=== PATIENT | female | born 1945 | race Caucasian/White ===

== ENCOUNTER 2020-04-05 14:29 | Inpatient (IN) | payer MEDICARE, OTHER ==
[~2020-04-05] VITALS: Ht 152.4 cm; Wt 60.3 kg
--- NOTE | 2020-04-05 14:45 | NUR ---
LAW PROFESSOR NOTE- PT ARRIVED TO GPS VIA [facility] FROM [facility] FOR 5150 DTS/DEPRESSION. PT WITH INCREASING DEPRESSION OVER LAST YEAR AND CONTINUED + SI. PT STATES, "I DON'T WANT TO BE HERE ANYMORE. I DONT WANT TO LIVE, I THINK ABOUT GOING SOMETIMES." ON FACE TO FACE EVALUATION, PT AMBULATORY, ALERT ORIENTED TO PERSON PLACE. SHE KNOWS THE CURRENT PRESIDENT BUT GUESSED THE DAY INCORRECTLY. SHE IS A BIT SLOW TO RESPOND WITH A BLUNTED AFFECT. HER EYE CONTACT IS FAIR AND SHE'S INTERACTIVE WITH CIRCUMSTANTIAL THOUGHT PROCESSES. PT DOES HAVE +SI. SHE HAS NO PLAN OR MEANS. DENIES HI AH OR VH. HE VS- BP-129/72, HR- 72, RR-20, T- 97.6, SATS 99% RA. ACCU-CHECK BS- 98. PT SKIN INTACT, MRSA SWAB DONE. PT REFUSES PNA VACCINE BUT REQUESTS INFLUENZA VACCINE. PMHX- BLADDER SURGERY TWO DECADES AGO "PROLAPSE" PT STATES, PT ALSO STATES SHE HAS CHEST PAIN AT TIMES BUT NO MEDICAL FINDINGS HAVE BEEN FOUND. DR PAYNE AND DR BATES MADE AWARE OF ADMISSION. ORDER RECEIVED AND COMPLIED WITH. PT RIGHTS PAMPHLET GIVEN. ENCOURAGING SAFETY AND MED COMPLIANCE.
[2020-04-05] MEDS ORDERED: MAGNESIUM HYDROXIDE 30 ML UDC PO PRN (15:00)
[2020-04-05] MEDS ORDERED: MAG HYDROX/AL HYDROX/SIMETH 30 ML UDC PO PRN (15:00)
[2020-04-05] MEDS ORDERED: BLOOD SUGAR DIAGNOSTIC 1 EACH STRIP IN ONE (15:00)
--- NOTE | 2020-04-05 15:22 | NUR ---
RN NOTE: ADMIT ACCUCHECK 98.
[2020-04-05 15:23] VITALS: BP 125/59
[2020-04-05 16:00] VITALS: BP 125/59
[2020-04-05] MEDS ORDERED: INFLUENZA VACCINE 2020-21 0.5 ML DISP.SYRIN IM ONE (16:00)
--- NOTE | 2020-04-05 17:07 | NUR ---
RN NOTE/FLU VACCINE- FLU VACCINE GIVEN AT THIS TIME. TOLERATED WELL.
[2020-04-05 19:49] VITALS: BP 127/74
[2020-04-05 19:55] VITALS: BP 127/74
[2020-04-05] MEDS: LORAZEPAM 0.5 MG TABLET PO PRN (20:03)
--- NOTE | 2020-04-05 20:03 | NUR ---
GPS RN NOTE: ANXIETY PT WAS C/O OF FEELING IRRITABLE, RESTLESS, ANXIOUS, REQUESTED SOMETHING FOR THE ANXIETY. ADMIN PRN ATIVAN 0.5MG @ 2002, WILL REASSESS AND CONTINUE TO MONITOR Q15MIN FOR SAFETY AND BEHAVIOR.
[2020-04-05] MEDS: TEMAZEPAM 7.5 MG CAPSULE PO PRN (21:26)
--- NOTE | 2020-04-05 21:27 | NUR ---
GPS RN NOTE: INSOMNIA PT C.O OF INSOMNIA, THAT SHE IS UNABLE TO SLEEP WITHOUT MEDICATION, REQUESTED SLEEPING PILL, ADMIN RESTORIL 7.5MG PRN @2125, WILL REASSESS AND CONTINUE TO MONITOR Q15MIN FOR SAFETY AND BEHAVIOR.
[2020-04-06] MEDS: LORAZEPAM 0.5 MG TABLET PO PRN (03:12)
--- NOTE | 2020-04-06 03:12 | NUR ---
GPS RN NOTE: ANXIETY PT WOKE UP C/O OF FEELING RESTLESS AND ANXIOUS AGAIN, ASKED IF SHE WAS ABLE TO TAKE THE MEDICATION BEFORE, VSS, ADMIN ATIVAN PRN @ 9972. WILL REASSESS AND CONTINUE TO MONITOR Q15MIN FOR SAFETY AND BEHAVIOR.
[2020-04-06] MEDS ORDERED: GEMF600T5 PO (07:56)
[2020-04-06] MEDS ORDERED: ATOR10TA PO (07:56)
[2020-04-06 08:00] VITALS: BP 124/75
--- NOTE | 2020-04-06 08:17 | NUR ---
UR NOTE: AUTHORIZATION #[id number] OBTAINED FROM ALEJANDRA CARBAJAL MGR AT [facility] [phone]. 3 DAYS APPROVED. RECEIVED FAX BACK AUTH COPY FROM [facility] [employer] OR [facility] WITH PHONE [phone] FAX# [phone]. OTHER NUMBER LISTED FOR UM FOR ALEJANDRA IS [phone]. Addendum: 04/06/20 at 1027 by ERAN GALVAN Cara CarbajalRegulator Mechanic phone number [phone] and fax# [phone].
[2020-04-06 08:56] LABS: CHOLESTEROL 144 mg/dL (<200); HDL CHOLESTEROL 52 mg/dL (40-60); LDL 81 mg/dL (0-99); TRIGLYCERIDES 74 mg/dL (30-150)
[2020-04-06 08:57] LABS: ALBUMIN 3.8 g/dL (3.4-5.0); BILIRUBIN,TOTAL 0.9 mg/dL (0.2-1.0); CALCIUM, SERUM 9.3 mg/dL (8.5-10.1); CREATININE 0.8 mg/dL (0.6-1.3); POTASSIUM 3.4 mmol/L (3.5-5.1); TOTAL PROTEIN, SERUM 7.2 g/dL (6.4-8.2)
--- NOTE | 2020-04-06 09:00 | NUR ---
RN NOTE- PT ALERT ORIENTED TO PERSON PLACE PURPOSE, CONFUSED ON TIME, DENYING HI AH VH, THOUGH ADMITS TO SOME +SI. STATES "I DONT WANT TO BE HERE ANYMORE" MED COMPLIANT, PO INTAKE GOOD TODAY... VISIBLE ON UNIT AT TIMES, INTERACTIVE W OTHERS SELECTIVELY
--- NOTE | 2020-04-06 10:39 | NUR ---
RN NOTE- DR LENTZ AWARE OF K+ 3.4 AND BUN 25. ORDERED PUSH FLUIDS RECHECK LABS IN FEW DAYS
--- NOTE | 2020-04-06 10:40 | NUR ---
FAMILY CONTACT: SW contacted pts Lorena ([phone]) for treatment and discharge planning. Per , pt will return home and states he will be picking pt up once stable for discharge.
[2020-04-06] MEDS ORDERED: POTASSIUM CHLORIDE 20 MEQ TAB.PRT.SR PO SCH (11:00)
--- NOTE | 2020-04-06 12:44 | NUR ---
INITIAL DISCHARGE PLAN: [place] return [place] [address] [id number]. SW will help form a safe and proper discharge in collaboration with .
[2020-04-06] MEDS: SERTRALINE HCL 50 MG TABLET PO SCH (13:05)
[2020-04-06 16:00] VITALS: BP 131/76
[2020-04-06 19:53] VITALS: BP 128/62
[2020-04-06] MEDS: TEMAZEPAM 7.5 MG CAPSULE PO PRN (21:56)
--- NOTE | 2020-04-06 21:57 | NUR ---
GPS RN NOTES: INSOMNIA PT C/O UNABLE TO SLEEP. PT REQUESTED "SLEEPING MEDICATION". OFFERED RESTORIL PRN ORDERED. PT AGREED AND TOLERATED MEDICATION WELL. CONTINUE TO MONITOR
[2020-04-07 03:10] VITALS: BP 120/75
[2020-04-07] MEDS: LORAZEPAM 0.5 MG TABLET PO PRN ×2 (03:15→09:35)
--- NOTE | 2020-04-07 03:16 | NUR ---
GPS RN NOTE: ANXIOUS PT WOKE UP C/O OF FEELING RESTLESS AND ANXIOUS. VITALS CHECKED WNL. ADMIN ATIVAN PRN PO ORDERED. WILL REASSESS AND CONTINUE TO MONITOR Q15MIN FOR SAFETY AND BEHAVIOR.
[2020-04-07 08:00] VITALS: BP 119/74
--- NOTE | 2020-04-07 12:27 | NUR ---
GROUP NOTE: SW encouraged pt to attend group on this day. Pt was laying in bed and refused to attend stating she was cold and was not feeling well. SW assessed for suicidal ideation, pt denies SI and states she would never hurt herself. Pt is withdrawn and isolated and SW discussed the importance of attending group milieu and getting up from bed to help with her depressed mood. Pt stated she will try later on today to get out of bed and walk around.
[2020-04-07] MEDS: SERTRALINE HCL 50 MG TABLET PO SCH (12:45)
--- NOTE | 2020-04-07 15:07 | NUR ---
GPS/RN-NOTES CALLED DR. LENTZ REGARDING PT. MEDICATIONS THAT NEED TO RECONCILE. PER MD SHE WILL RECONCILE IT.
[2020-04-07 16:00] VITALS: BP 125/79
[2020-04-07] MEDS: GEMFIBROZIL 600 MG TABLET PO SCH (17:05)
[2020-04-07 19:54] VITALS: BP 147/80
[2020-04-07] MEDS: ATORVASTATIN 10 MG TABLET PO SCH (21:11)
[2020-04-07] MEDS: TEMAZEPAM 7.5 MG CAPSULE PO PRN (21:12)
--- NOTE | 2020-04-07 21:12 | NUR ---
GPS-RN NOTE: INSOMNIA PATIENT C/O INABILITY TO SLEEP. ADMINISTERED RESTORIL 7.5MG PO ORDERED. WILL CONTINUE TO MONITOR FOR PATIENT'S SAFETY.
[2020-04-08] MEDS: LORAZEPAM 0.5 MG TABLET PO PRN ×2 (06:28→18:18)
--- NOTE | 2020-04-08 06:28 | NUR ---
GPS-RN NOTE: ANXIETY PATIENT C/O FEELING ANXIOUS. PT REQUESTED FOR ATIVAN. PRN ATIVAN 0.5MG PO GIVEN. WILL CONTINUE TO MONITOR FOR PATIENT'S SAFETY.
[2020-04-08 06:53] LABS: BASOPHILS % (AUTO) 0.3 % (0.0-2.0); EOSINOPHILS % (AUTO) 2.3 % (0.0-6.0); HEMATOCRIT 39 % (33-45); HEMOGLOBIN 13.4 g/dL (11.5-14.8); LYMPHOCYTES # (AUTO) 1.1 /CMM (0.8-4.8); MEAN CORPUSCULAR HGB CONC 34 g/dl (31.0-36.0); MEAN CORPUSCULAR VOLUME 97 fL (82-100); MONOCYTES # (AUTO) 0.4 /CMM (0.1-1.30); MONOCYTES % (AUTO) 7.5 % (2.0-12.0); NEUTROPHILS # (AUTO) 3.6 /CMM (1.8-8.9); NEUTROPHILS % (AUTO) 68.9 % (43.0-81.0); PLATELET COUNT (AUTO) 152 /CMM (150-450); RED BLOOD CELL COUNT(AUTO) 4.01 MIL/uL (4.0-5.2); WHITE BLOOD COUNT (AUTO) 5.2 K/uL (4.3-11.0)
[2020-04-08 07:17] LABS: CALCIUM, SERUM 9.1 mg/dL (8.5-10.1); CARBON DIOXIDE 26 mmol/L (21-32); CHLORIDE 103 mmol/L (98-107); CREATININE 0.5 mg/dL (0.6-1.3); GLUCOSE 71 mg/dL (74-106); MAGNESIUM 2.1 mg/dL (1.8-2.4); PHOSPHORUS 3.6 mg/dL (2.5-4.9); POTASSIUM 3.6 mmol/L (3.5-5.1); SODIUM SERUM 139 mmol/L (136-145); UREA NITROGEN, BLOOD 20 mg/dL (7-18)
[2020-04-08] MEDS: GEMFIBROZIL 600 MG TABLET PO SCH (08:21)
[2020-04-08 08:26] VITALS: BP 122/66
--- NOTE | 2020-04-08 10:27 | NUR ---
UR NOTE: AUTHORIZATION #[id number] COLE completed clinical review via voicemail with Cara Hand Deicer [employer] Winder phone number [phone]/fax# [phone] with JOÃO Selenokhod.
--- NOTE | 2020-04-08 11:43 | NUR ---
UR Contact: Cara, pts Security Monitor ([phone]), contacted the SW and stated that she needed a faxed version of the clinical left on her voicemail. COLE faxed a clinical to [phone].
[2020-04-08] MEDS: SERTRALINE HCL 50 MG TABLET PO SCH (12:21)
[2020-04-08 16:06] VITALS: BP 119/71
--- NOTE | 2020-04-08 16:22 | NUR ---
Group Note: SW encouraged the pt to attend group therapy on 04/08/20 on discharge planning. Pt refused to attend and stated that she wanted to remain in her bed. COLE conducted an individual and discussed the pt discharging back to her home once her MD thinks that she is stable. Pt stated that she wants to go home as soon as possible.
[2020-04-08] MEDS: SERTRALINE HCL 25 MG TABLET PO SCH (16:24)
--- NOTE | 2020-04-08 18:20 | NUR ---
GPS/RN-NOTES PATIENT REQUESTING ATIVAN FOR ANXIETY, ATIVAN 0.5MG P.O GIVEN PRN ORDER. WILL ENDORSE TO THE INCOMING NURSE TO CONTINUE MONITORING FOR SAFETY AND BEHAVIOR.AND CONTINUITY OF CARE.
[2020-04-08 20:10] VITALS: BP 110/73
[2020-04-08] MEDS: ATORVASTATIN 10 MG TABLET PO SCH (21:04)
[2020-04-08] MEDS: TEMAZEPAM 7.5 MG CAPSULE PO PRN (21:06)
--- NOTE | 2020-04-08 21:07 | NUR ---
GPS-RN NOTE: INSOMNIA PATIENT C/O INABILITY TO SLEEP. ADMINISTERED RESTORIL 7.5MG PO ORDERED. WILL CONTINUE TO MONITOR FOR PATIENT'S SAFETY.
[2020-04-09 07:40] VITALS: BP 110/74
--- NOTE | 2020-04-09 08:19 | NUR ---
UR NOTE: COLE contacted elisha Marroquin Crew Attendant ([phone]) who stated pt is covered through today 04/09/20 with a clinical review due on Sunday04/12/20.
[2020-04-09] MEDS: GEMFIBROZIL 600 MG TABLET PO SCH (08:24)
[2020-04-09] MEDS: SERTRALINE HCL 50 MG TABLET PO SCH (12:28)
--- NOTE | 2020-04-09 15:10 | NUR ---
GROUP NOTE: SW encouraged pt to attend group on this day. Pt was laying in bed and refused to attend stating she was not feeling up to it today. Pt states she is feeing anxious and believes it is because she is hospitalized. Pt states she would feel better is she was discharged home. SW discussed pts treatment plan and her isolation and withdrawal and informed her her psychiatrist will be slowly increasing her medication over the weekend to help with her depressed mood. SW encouraged her to participate in group milieu daily.
[2020-04-09] MEDS: SERTRALINE HCL 25 MG TABLET PO SCH (16:07)
[2020-04-09 16:43] VITALS: BP 117/71
[2020-04-09] MEDS: LORAZEPAM 0.5 MG TABLET PO PRN (19:47)
--- NOTE | 2020-04-09 19:49 | NUR ---
RN NOTES : ANXIETY PT. C/O ANXIETY ATIVAN 0.5 MG PO PRN GIVEN PER PT. REQUEST , WILL CONTINUE TO MONITOR.
[2020-04-09 20:23] VITALS: BP 110/69
[2020-04-09] MEDS: ATORVASTATIN 10 MG TABLET PO SCH (22:04)
--- NOTE | 2020-04-10 06:28 | NUR ---
GPS RN NOTES: PT. RESTING IN HER ROOM, PT.REMAINED STABLE THROUGHOUT SHIFT, NO S/S OF DISTRESS NOTED , ALL CARE NEEDS MET ANTICIPATED. MED COMPLIANT ,WILL CONTINUE TO MONITOR FOR SAFETY BEHAVIOR, AND ENDORSE TO AM SHIFT FOR CONTINUITY OF CARE.
[2020-04-10] MEDS: GEMFIBROZIL 600 MG TABLET PO SCH (08:23)
[2020-04-10 08:24] VITALS: BP 127/77
[2020-04-10] MEDS: LORAZEPAM 0.5 MG TABLET PO PRN (08:50)
[2020-04-10] MEDS: SERTRALINE HCL 50 MG TABLET PO SCH (12:00)
[2020-04-10 16:00] VITALS: BP 106/72
[2020-04-10] MEDS: SERTRALINE HCL 25 MG TABLET PO SCH (16:11)
[2020-04-10 20:10] VITALS: BP 104/65
[2020-04-10] MEDS: ATORVASTATIN 10 MG TABLET PO SCH (21:02)
[2020-04-10] MEDS: TEMAZEPAM 7.5 MG CAPSULE PO PRN (21:04)
--- NOTE | 2020-04-10 21:04 | NUR ---
GPS-RN NOTE: INSOMNIA PATIENT C/O INABILITY TO SLEEP. ADMINISTERED RESTORIL 7.5MG PO ORDERED. WILL CONTINUE TO MONITOR FOR PATIENT'S SAFETY.
[2020-04-11] MEDS: LORAZEPAM 0.5 MG TABLET PO PRN ×2 (06:14→12:13)
--- NOTE | 2020-04-11 06:14 | NUR ---
GPS-RN NOTE: ANXIETY PATIENT C/O FEELING ANXIOUS. ADMINISTERED ATIVAN 0.5MG PO ORDERED. WILL CONTINUE TO MONITOR FOR PATIENT'S SAFETY.
[2020-04-11 08:00] VITALS: BP 130/72
[2020-04-11] MEDS: GEMFIBROZIL 600 MG TABLET PO SCH (08:11)
[2020-04-11] MEDS: SERTRALINE HCL 50 MG TABLET PO SCH (12:13)
--- NOTE | 2020-04-11 12:14 | NUR ---
RN NOTE: ANXIETY PT C/O INCREASING ANXIETY. PT IS WITHDRAWN, ISOLATIVE WITH FLAT AFFECT. PT REQUESTING ATIVAN. ATIVAN 0.5 MG PO PRN ADMINISTERED
[2020-04-11 16:00] VITALS: BP 122/64
[2020-04-11] MEDS: SERTRALINE HCL 25 MG TABLET PO SCH (17:16)
[2020-04-11 19:54] VITALS: BP 111/75
[2020-04-11] MEDS: ATORVASTATIN 10 MG TABLET PO SCH (21:01)
[2020-04-11] MEDS: TEMAZEPAM 7.5 MG CAPSULE PO PRN (21:13)
--- NOTE | 2020-04-11 21:13 | NUR ---
GPS RN NOTE: INSOMNIA PATIENT STATED THAT SHE CAN NOT SLEEP & REQUESTED TO GET SLEEPING MEDICINE. PRN RESTORIL 7.5 MG PO GIVEN. WILL CONTINUE TO MONITOR.
[2020-04-12 08:10] VITALS: BP 100/68
[2020-04-12] MEDS: GEMFIBROZIL 600 MG TABLET PO SCH (08:17)
--- NOTE | 2020-04-12 08:22 | NUR ---
UR NOTE: COLE faxed elisha Marroquin Attendance Officer ([phone]; fax: [phone]) clinicals including progress notes, nursing notes, medications changes and labs. Waiting for review and continued authorization.
[2020-04-12] MEDS: LORAZEPAM 0.5 MG TABLET PO PRN (08:59)
--- NOTE | 2020-04-12 08:59 | NUR ---
RN NOTE: ANXIETY PT C/O INCREASED ANXIETY. PT VISIBLY SHAKING. REQUESTING ATIVAN 0.5 MG PO PRN.
[2020-04-12] MEDS: SERTRALINE HCL 50 MG TABLET PO SCH (12:39)
--- NOTE | 2020-04-12 15:30 | NUR ---
UR NOTE: COLE spoke with Cara pts Stone Rubber ([phone]; fax: [phone]) who stated that patient is continued to remain authorized for her hospitalization and clinicals due Sunday. Addendum: 04/12/20 at 1539 by MARISA PEARSON COLE also requested for outpatient psychiatrist for the patient. Cara stated that she requires an order from the hospital. This social studies teacher faxed Cara an order for outpatient psychiatry follow up.
[2020-04-12 16:05] VITALS: BP 109/72
[2020-04-12] MEDS: SERTRALINE HCL 25 MG TABLET PO SCH (16:46)
[2020-04-12 20:30] VITALS: BP 114/64
[2020-04-12] MEDS: ATORVASTATIN 10 MG TABLET PO SCH (21:15)
[2020-04-12] MEDS: TEMAZEPAM 7.5 MG CAPSULE PO PRN (21:15)
--- NOTE | 2020-04-12 21:15 | NUR ---
GPS RN NOTE: PT REQUESTED FOR RESTORIL FOR SLEEP. RESTORIL 7.5MG/1CAP GIVEN PO PRN ORDERED. WILL CONTINUE TO MONITOR.
--- NOTE | 2020-04-13 06:39 | NUR ---
GPS RN CLOSING NOTE: PT IS CURRENTLY LAYING ON BED SLEEPING COMFORTABLY. SLEPT 7.5HR THIS SHIFT. NO S/S OF DISTRESS. RESPIRATION EVEN AND UNLABORED WITH EQUAL RISE AND FALL OF THE CHEST ON ROOM AIR. ALL PT CARE NEEDS MET ANTICIPATED. BED IS LOCKED AND IN LOWEST POSITION. WILL CONTINUE TO MONITOR AND ENDORSE TO AM SHIFT.
[2020-04-13 08:00] VITALS: BP 123/70
[2020-04-13] MEDS: GEMFIBROZIL 600 MG TABLET PO SCH (08:03)
--- NOTE | 2020-04-13 08:26 | NUR ---
UR NOTE: COLE faxed Cara, elisha Crystal Gazer ([phone]; fax: [phone]) clinicals including progress notes, nursing notes, medications changes and labs
--- NOTE | 2020-04-13 10:52 | NUR ---
RN-CO: DR CERDA MADE AWARE REGARDING PATIENT'S POOR PO INTAKE AVERAGING 30%.
[2020-04-13] MEDS: SERTRALINE HCL 50 MG TABLET PO SCH (12:04)
[2020-04-13] MEDS: LORAZEPAM 0.5 MG TABLET PO PRN (13:14)
--- NOTE | 2020-04-13 13:14 | NUR ---
RN NOTE- ANXIETY/ PT WITH C/O RESTLESSNESS AND ANXIETY. ATIVAN 0.5 MG GIVEN AT THIS TIME.
--- NOTE | 2020-04-13 13:16 | NUR ---
COLE Coordination of Care: Dr. Ritchie Causey Address: [address] [place] [address] on April 29 at 10:30AM. COLE requested psychiatrist referral and dejan Lowry office manager receptionist will send in request. Primary doctor will provide psychotropic medications.
--- NOTE | 2020-04-13 14:33 | NUR ---
Individual Intervention: This typewriter assembly and parts inspector met with pt to conduct brief counseling and discuss patient's presenting problem SI. Pt appeared withdrawn in her room. Pt denies SI and stated she wants to sleep. This typewriter assembly and parts inspector was unable to conduct brief counseling at this moment.
[2020-04-13 16:00] VITALS: BP 104/74
[2020-04-13] MEDS: SERTRALINE HCL 25 MG TABLET PO SCH (16:08)
[2020-04-13 20:05] VITALS: BP 133/71
[2020-04-13] MEDS: TEMAZEPAM 7.5 MG CAPSULE PO PRN (21:05)
[2020-04-13] MEDS: ATORVASTATIN 10 MG TABLET PO SCH (21:05)
--- NOTE | 2020-04-13 21:08 | NUR ---
GPS RN NOTE: INSOMNIA PT. C/O UNABLE TO SLEEP. ADMINISTERED RESTORIL 7.5 MG PO PRN ORDERED. WILL CONTINUE TO MONITOR.
[2020-04-14 08:00] VITALS: BP 124/62
[2020-04-14] MEDS: GEMFIBROZIL 600 MG TABLET PO SCH (08:29)
[2020-04-14] MEDS: LORAZEPAM 0.5 MG TABLET PO PRN (08:29)
--- NOTE | 2020-04-14 08:30 | NUR ---
GPS/RN-NOTES PATIENT STATED " I NEED MY ATIVAN TO CALM ME DOWN". ATIVAN 0.5MG P.O GIVEN PRN ORDER. WILL CONT. MONITORING FOR SAFETY AND BEHAVIOR.
--- NOTE | 2020-04-14 09:13 | NUR ---
UR NOTE: SAMMI faxed elisha Marroquin Hat Renovator ([phone]; fax: [phone]) clinicals including progress notes, nursing notes, medications changes and labs Addendum: 04/14/20 at 1007 by MARISA PEARSON SAMMI called Cara to follow up regarding clinicals and authorization. Cara stated she received them and will review and call this sammi back this afternoon. SAMMI also followed up on the request sent to Cara on Sunday regarding outpatient psychiatrist. Cara stated she will follow up on the order and call this sammi back.
--- NOTE | 2020-04-14 09:30 | NUR ---
GPS/RN-NOTES PATIENT LAYING IN BED CALM,NO ACUTE DISTRESS NOTED.
[2020-04-14] MEDS: SERTRALINE HCL 50 MG TABLET PO SCH (12:17)
[2020-04-14 16:00] VITALS: BP 102/63
[2020-04-14] MEDS ORDERED: SERTRALINE HCL 25 MG TABLET PO SCH (17:00)
[2020-04-14 19:36] VITALS: BP_SYST 120; BP_SYST 125; BP_DIAS 55; BP_DIAS 73
[2020-04-14] MEDS: ATORVASTATIN 10 MG TABLET PO SCH (21:06)
[2020-04-14] MEDS: TEMAZEPAM 7.5 MG CAPSULE PO PRN (21:07)
--- NOTE | 2020-04-14 21:07 | NUR ---
GPS RN NOTE: PT REQUESTED FOR RESTORIL FOR SLEEP. RESTORIL 7.5MG/1CAP GIVEN PO PRN ORDERED AT 2107. WILL CONTINUE TO MONITOR.
--- NOTE | 2020-04-15 06:49 | NUR ---
GPS RN CLOSING NOTE: PT AWAKE A/O X2-3. APPROPRIATE AFFECT, SLEPT 9HR THIS SHIFT. NO S/S OF DISTRESS. RESPIRATION EVEN AND UNLABORED WITH EQUAL RISE AND FALL OF THE CHEST ON ROOM AIR. ALL PT CARE NEEDS MET ANTICIPATED. BED IS LOCKED AND IN LOWEST POSITION. WILL CONTINUE TO MONITOR AND ENDORSE TO AM SHIFT.
[2020-04-15 08:00] VITALS: BP 126/74
[2020-04-15] MEDS: GEMFIBROZIL 600 MG TABLET PO SCH (08:19)
[2020-04-15] MEDS: LORAZEPAM 0.5 MG TABLET PO PRN ×2 (08:56→17:34)
--- NOTE | 2020-04-15 08:56 | NUR ---
rRN-CO: PT WAS GIVEN ATIVAN 0.5 MG PO DUE TO ANXIETY.
--- NOTE | 2020-04-15 12:06 | NUR ---
UR: AUTHORIZATION #[id number] COLE contacted elisha Marroquin Senior Financial Accountant ( ) to follow up regarding continued authorization. Cara stated that the patient is currently authorized and is requesting daily clinicals.
[2020-04-15] MEDS: ENSURE ENLIVE 237 ML LIQUID (VANILLA) PO SCH ×2 (12:13→16:00)
[2020-04-15] MEDS: SERTRALINE HCL 50 MG TABLET PO SCH (12:14)
[2020-04-15 16:00] VITALS: BP 115/74
[2020-04-15] MEDS: SERTRALINE HCL 25 MG TABLET PO SCH (16:01)
[2020-04-15] MEDS: ACETAMINOPHEN 325 MG TABLET PO PRN (16:22)
--- NOTE | 2020-04-15 17:35 | NUR ---
RN-CO: ATIVAN GIVEN FOR ANXIETY.
[2020-04-15] MEDS ORDERED: MIRTAZAPINE 15 MG TABLET PO SCH (21:00)
[2020-04-15] MEDS: ATORVASTATIN 10 MG TABLET PO SCH (21:19)
[2020-04-15 22:51] VITALS: BP 113/70
[2020-04-16] MEDS: GEMFIBROZIL 600 MG TABLET PO SCH (08:22)
[2020-04-16] MEDS: ENSURE ENLIVE 237 ML LIQUID (VANILLA) PO SCH ×3 (08:23→16:31)
[2020-04-16 08:37] VITALS: BP 120/58
--- NOTE | 2020-04-16 08:43 | NUR ---
SW FAMILY CONTACT: SW received a call from patient's [id number], Fabby Rosales ([phone]) requesting an update regarding how the patient is doing and any changes to her medications and behaviors. Fabby asked about any discharge plan for the patient. This SW provided the information requested and stated that once we have a discharge date we will keep family informed. This SW provided the recent medication adjustments and changes in the patient's behavior.
--- NOTE | 2020-04-16 09:00 | NUR ---
RN NOTE- PT QUIET WITHDRAWN CALM ORIENTED TO PERSON PLACE PURPOSE. DENIES ALL AT PRESENT PO INTAKE GOOD MED COMPLIANT
[2020-04-16] MEDS: SERTRALINE HCL 50 MG TABLET PO SCH (12:42)
--- NOTE | 2020-04-16 13:45 | NUR ---
UR NOTE: AUTHORIZATION #[id number] SW faxed elisha Marroquin Injection Operator ( ) updated clinicals for review.
[2020-04-16] MEDS: ACETAMINOPHEN 325 MG TABLET PO PRN (15:52)
--- NOTE | 2020-04-16 15:52 | NUR ---
RN NOTE- C/O GENERAL DISCOMFORT. TYLENOL 650 MG GIVEN
[2020-04-16 16:03] VITALS: BP 141/62
[2020-04-16] MEDS: SERTRALINE HCL 25 MG TABLET PO SCH (16:31)
[2020-04-16 20:01] VITALS: BP 101/64
--- NOTE | 2020-04-16 20:07 | NUR ---
RN NOTES: DR. PAYNE NOTIFED FOR GABAPENTIN 10 MG BID CONSENT IS PENDING , PER DR. PAYNE I WILL TAKE CARE TOMMOROW , NO NEW ORDES GIVEN.
[2020-04-16] MEDS: MIRTAZAPINE 15 MG TABLET PO SCH (20:36)
[2020-04-16] MEDS: ATORVASTATIN 10 MG TABLET PO SCH (21:04)
[2020-04-17 08:00] VITALS: BP 136/55
[2020-04-17] MEDS: ENSURE ENLIVE 237 ML LIQUID (VANILLA) PO SCH ×3 (08:33→16:05)
[2020-04-17] MEDS: LORAZEPAM 0.5 MG TABLET PO PRN (08:33)
[2020-04-17] MEDS: GEMFIBROZIL 600 MG TABLET PO SCH (08:33)
--- NOTE | 2020-04-17 08:33 | NUR ---
RN NOTE- PT REQUESTING RX FOR ANXIETY. ATIVAN 0.5 MG GIVEN
--- NOTE | 2020-04-17 09:00 | NUR ---
RN NOTE- PT WITHDRAWN ANXIOUS REQUESTING RX. ORIENTED TO PERSON PLACE PURPOSE. DENIES ALL AT PRESENT PO INTAKE GOOD MED COMPLIANT
[2020-04-17] MEDS: GABAPENTIN 100 MG CAPSULE PO SCH ×2 (10:09→16:05)
[2020-04-17] MEDS: SERTRALINE HCL 50 MG TABLET PO SCH (12:04)
[2020-04-17 16:00] VITALS: BP 103/65
[2020-04-17] MEDS: SERTRALINE HCL 25 MG TABLET PO SCH (16:05)
[2020-04-17 19:57] VITALS: BP 105/52
[2020-04-17] MEDS: MIRTAZAPINE 15 MG TABLET PO SCH (20:52)
[2020-04-17] MEDS: ATORVASTATIN 10 MG TABLET PO SCH (21:27)
[2020-04-17] MEDS: TEMAZEPAM 7.5 MG CAPSULE PO PRN (21:30)
--- NOTE | 2020-04-17 21:32 | NUR ---
GPS RN NOTE: PT REQUESTED FOR RESTORIL FOR SLEEP. RESTORIL 7.5MG/1CAP GIVEN PO PRN ORDERED AT 2130. WILL CONTINUE TO MONITOR
--- NOTE | 2020-04-18 06:40 | NUR ---
GPS RN CLOSING NOTE: PT AWAKE A/O X2-3. FLAT AFFECT, SLEPT 8HR THIS SHIFT. NO S/S OF DISTRESS. RESPIRATION EVEN AND UNLABORED WITH EQUAL RISE AND FALL OF THE CHEST ON ROOM AIR. ALL PT CARE NEEDS MET ANTICIPATED. BED IS LOCKED AND IN LOWEST POSITION. WILL CONTINUE TO MONITOR AND ENDORSE TO AM SHIFT.
[2020-04-18 08:00] VITALS: BP 114/67
[2020-04-18] MEDS: GABAPENTIN 100 MG CAPSULE PO SCH ×2 (08:47→17:54)
[2020-04-18] MEDS: GEMFIBROZIL 600 MG TABLET PO SCH (08:47)
[2020-04-18] MEDS: ENSURE ENLIVE 237 ML LIQUID (VANILLA) PO SCH ×3 (08:49→17:54)
[2020-04-18] MEDS: SERTRALINE HCL 50 MG TABLET PO SCH (13:05)
[2020-04-18] MEDS: SERTRALINE HCL 25 MG TABLET PO SCH (17:54)
[2020-04-18 20:29] VITALS: BP 116/74
[2020-04-18] MEDS: MIRTAZAPINE 15 MG TABLET PO SCH (20:29)
[2020-04-18] MEDS: ATORVASTATIN 10 MG TABLET PO SCH (21:24)
[2020-04-18] MEDS: TEMAZEPAM 7.5 MG CAPSULE PO PRN (21:24)
--- NOTE | 2020-04-18 21:25 | NUR ---
GPS RN NOTE: PT REQUESTED FOR RESTORIL FOR SLEEP. RESTORIL 7.5MG/1CAP GIVEN PO PRN ORDERED AT 2124. WILL CONTINUE TO MONITOR Addendum: 04/18/20 at 2246 by DELONTE IZQUIERDO RN GPS RN NOTE: PT NOTES AND MEDS WERE WRONGLY CHARTED UNDER JOHN'S ACCOUNT.
[2020-04-19] MEDS: LORAZEPAM 0.5 MG TABLET PO PRN (05:42)
--- NOTE | 2020-04-19 05:43 | NUR ---
GPS RN NOTE: PATIENT WOKE UP AND COMPLAINED OF ANXIETY AND REQUESTED FOR MEDICATION. ATIVAN 0.5MG/1TAB GIVEN PO PRN ORDERED AT 0542. WILL CONTINUE TO MONITOR
--- NOTE | 2020-04-19 06:31 | NUR ---
GPS RN CLOSING NOTE: PT LAYING ON BED AWAKE A/O X2-3. FLAT AFFECT, SLEPT 8HR THIS SHIFT. WEEKLY SKIN ASSESSMENT DONE, SKIN INTACT. NO S/S OF DISTRESS. RESPIRATION EVEN AND UNLABORED WITH EQUAL RISE AND FALL OF THE CHEST ON ROOM AIR. ALL PT CARE NEEDS MET ANTICIPATED. BED IS LOCKED AND IN LOWEST POSITION. WILL CONTINUE TO MONITOR AND ENDORSE TO AM SHIFT.
[2020-04-19 08:00] VITALS: BP 119/73
[2020-04-19] MEDS: GEMFIBROZIL 600 MG TABLET PO SCH (08:37)
[2020-04-19] MEDS: ENSURE ENLIVE 237 ML LIQUID (VANILLA) PO SCH ×3 (08:37→16:13)
[2020-04-19] MEDS: GABAPENTIN 100 MG CAPSULE PO SCH ×2 (08:37→16:13)
--- NOTE | 2020-04-19 09:06 | NUR ---
UR NOTE: AUTHORIZATION #[id number] SW faxed elisha Marroquin Armament Mechanic ( ) updated clinicals for review.
--- NOTE | 2020-04-19 13:06 | NUR ---
FAMILY CONTACT: SW contacted pts Lorena ([phone]) to inform him pt will be discharged tomorrow Sunday04/20/20 stated he will be coming at 11:00am to pick pt up.
[2020-04-19] MEDS: SERTRALINE HCL 50 MG TABLET PO SCH (13:10)
--- NOTE | 2020-04-19 13:12 | NUR ---
UR NOTE: COLE contacted elisha Marroquin Grain Broker ([phone]) to inform her pt will be discharging tomorrow Sunday04/20/20 at 11:00am home. COLE requested psychiatrist follow up, per Cara, pt will be following up with [facility] and pt needs to call to schedule and appointment once she is discharged from the hospital. Addendum: 04/19/20 at 1320 by ERAN GALVAN [facility] Address: [address], [place] [address] Addendum: 04/19/20 at 1331 by ERAN GALVAN [facility] Address: [address] [place] [address] [address], [place] [address]
[2020-04-19 16:00] VITALS: BP 121/67
[2020-04-19] MEDS: SERTRALINE HCL 25 MG TABLET PO SCH (16:13)
[2020-04-19 19:35] VITALS: BP 110/65
[2020-04-19] MEDS: MIRTAZAPINE 15 MG TABLET PO SCH (20:13)
[2020-04-19] MEDS: ATORVASTATIN 10 MG TABLET PO SCH (21:06)
[2020-04-19] MEDS: ACETAMINOPHEN 325 MG TABLET PO PRN (22:14)
--- NOTE | 2020-04-19 22:16 | NUR ---
GPS RN NOTES: HEADACHE PT C/O OF HEADACHE. PT REQUESTED TYLENOL. OFFERED TYLENOL PRN ORDERED. PT AGREED AND TOLERATED MEDICATION WELL. CONTINUE TO MONITOR.
[2020-04-20 08:00] VITALS: BP 125/77
[2020-04-20] MEDS: GEMFIBROZIL 600 MG TABLET PO SCH (08:17)
[2020-04-20] MEDS: GABAPENTIN 100 MG CAPSULE PO SCH (08:18)
[2020-04-20] MEDS: ENSURE ENLIVE 237 ML LIQUID (VANILLA) PO SCH (08:18)
--- NOTE | 2020-04-20 10:47 | NUR ---
GPS SITE MONITOR NOTE: PATIENT DISCHARGED TODAY AT 1040TO HER HOUSE LOCATED AT [address] [place] [id number] PATIENT LEFT THE UNIT AMBULATORY ACCOMPANIED BY 1 STAFF TO THE MAIN LOBBY AND PICKED UP BY HER ANAND [phone]. PATIENT IS IN STABLE CONDITION. VSS. NO ACUTE DISTRESS NOTED. NO COMPLAINTS. COMPLIANT WITH MEDICATION MANAGEMENT. COOPERATIVE WITH PLAN OF CARE. PSYCHIATRIC TREATMENT PLANS MET. MEDICAL TREATMENT PLANS DEFERRED FOR CONTINUAL MONITORING. DENIES SI/HI/VAH AT THE TIME OF DISCHARGE.DENIES FEELING DEPRESSED SKIN CHECK DONE SKIN CLEAN AND INTACT . EDUCATED PATIENT ABOUT AFTERCARE WITH COPY PROVIDED. RETURNED PERSONAL BELONGINGS TO PATIENT. MEDICATIONS RECONCILED WITH ALONG WITH PSYCHIATRIC DISCHARGE ORDERS. DISCHARGE PAPERWORK SIGNED. FOR FOLLOW UP WITH PSYCHIATRIST AND GRINDER CHIPPER WITHIN 1 WEEK. PT REFUSED PNEUMONIA AND INFLUENZA VACCINE.
--- NOTE | 2020-04-20 11:16 | NUR ---
Discharge Note: Pt will be discharged at 11:00am via private vehicle home [address] [place] [address]. Pts , Lorena ([phone]), will be picking pt up. Upon discharge, pt appears to be in a euthymic mood and presents with a calm affect. Pt appears to be alert and oriented x4 (time, place, self and situation). Pt denies both suicidal and homicidal ideation as well as auditory and visual hallucinations. Pt appears to be well groomed and appropriately dressed. The multidisciplinary exit care form was done, printed, signed, and given to the patient. Pt will be under the care of psychiatrist, [facility], located at [address] [place] [address] [address], [place] [address] ; and a fax was sent to: [phone]. Pt will be under the care of supervisor park workers, Dr. Ritchie Causey, located at [address] [place] [address] on April 29 at 10:30AM.
--- NOTE | 2020-04-20 11:19 | NUR ---
UR NOTE: AUTHORIZATION #[id number] faxed elisha Marroquin Special Effects Makeup Artist ( ) discharge clinical for review.
== END 2020-04-20 10:40 | disposition home or self-care (01) | DRG 885 ==
LOC: GPS 14:31
PROVIDERS: ADMIT Psychiatry & Neurology Psychosomatic Medicine; ATTEND Internal Medicine
DX: F33.3 Major depressive disorder, recurrent, severe with psychotic symptoms (principal); R45.851 Suicidal ideations; F41.9 Anxiety disorder, unspecified; E86.0 Dehydration; E87.6 Hypokalemia; F41.0 Panic disorder [episodic paroxysmal anxiety]; Z73.6 Limitation of activities due to disability; M62.81 Muscle weakness (generalized)
CPT/HCPCS: 36415; 80048-TC; 80053-TC; 80061-TC; 82962-TC; 83735-TC; 84100-TC; 85025-TC; 87081-TC; Q2036